=== PATIENT | male | born 1985 | race Caucasian/White ===

== ENCOUNTER 2017-11-03 18:14 | Emergency (ER) | payer SELFPAY, OTHER ==
--- NOTE | 2017-11-03 18:54 | RAD ---
SINGLE FRONTAL VIEW OF THE RIGHT HAND 11/03/17 HISTORY: Right hand pain, swelling, redness around the nailbed. FINDINGS/IMPRESSION: No definite abnormalities seen. POS: [facility]
[2017-11-03] MEDS ORDERED: Lidocaine 1% PF 5 ML VIAL ONE (19:01)
[2017-11-03] MEDS ORDERED: Adacel (T-DAP) 0.5 ML VIAL ONE (19:40)
== END 2017-11-03 20:10 | disposition home or self-care (01) ==
LOC: ERS 18:14
DX: L03.011 Cellulitis of right finger (principal)
CPT/HCPCS: 10060; 87070; 87205; 90471; 90715; J2001

== ENCOUNTER 2017-11-12 12:10 | Emergency (ER) | payer SELFPAY ==
[2017-11-12] MEDS ORDERED: methylPREDNISolone Sod Succ/PF 125 MG/2 ML VIAL ONE (15:01)
[2017-11-12] MEDS ORDERED: diphenhydrAMINE 25 MG CAP ONE (15:01)
[2017-11-12] MEDS ORDERED: Sterile Water 10 ML ONE (15:05)
== END 2017-11-12 15:35 | disposition home or self-care (01) ==
LOC: ERS 12:10
DX: L27.0 Generalized skin eruption due to drugs and medicaments taken internally (principal); T36.1X5A Adverse effect of cephalosporins and other beta-lactam antibiotics, initial encounter; T37.0X5A Adverse effect of sulfonamides, initial encounter
CPT/HCPCS: 96372; A4216; J2930

== ENCOUNTER 2020-07-16 11:25 | Inpatient (IN) | payer SELFPAY ==
[2020-07-16 12:02] LABS: #Eosinphils 0.2 thou/uL (0.0-0.7); #Lymphocytes 2.7 thou/uL (1.20-3.40); #Monocytes 0.6 thou/uL (0.11-0.59); #Neutrophils 3.2 thou/uL (1.40-6.50); %Basophils 0.4 % (0.0-1.0); %Eosinophils 3.4 % (0.0-10.0); %Lymphocytes 39.8 % (21.0-51.0); %Monocytes 8.2 % (0.0-10.0); %Neutrophils 48.2 % (42.0-75.0); Hemoglobin 18.1 g/dL (14.0-18.0); Mean Corpuscular HGB CONC 34.4 g/dL (32.0-36.0); Mean Corpuscular Hemoglobin 31.2 pg (27.0-31.0); Mean Corpuscular Volume 90.7 fL (78.0-98.0); Mean Platelet Volume 6.6 fL (7.4-10.4); Platelet Count 244 thou/uL (130-400); RBC Distribution Width 11.8 % (11.5-14.5); Red Blood Cell (RBC) Count 5.79 mill/uL (4.70-6.10); White Blood Cell (WBC) Count 6.7 thou/uL (4.8-10.8)
[2020-07-16 12:34] LABS: ALT (SGPT) 39 U/L (8-55); AST (SGOT) 36 U/L (5-34); Albumin 4.9 g/dL (3.5-5.0); Alkaline Phosphatase 80 U/L (40-110); Anion Gap 16 mmol/L (10-20); BUN (Urea Nitrogen) 9 mg/dL (8.9-20.6); CK (CPK) 179 U/L (30-200); Calc. Creatinine Clearance 0 mL/min (70-130); Calcium 9.8 mg/dL (7.8-10.44); Carbon Dioxide 25 mmol/L (22-29); Chloride 101 mmol/L (98-107); Estimated GFR-MDRD 68; Globulin 3.5 g/dL (2.4-3.5); Glucose 91 mg/dL (70-105); Lipase 30 U/L (8-78); Potassium 4.4 mmol/L (3.5-5.1); Protein, Total 8.4 g/dL (6.0-8.3); Sodium 138 mmol/L (136-145)
[2020-07-16] MEDS ORDERED: cefTRIAXone\\ROCEPHIN 2 GM VIAL ONE (12:38)
--- NOTE | 2020-07-16 12:47 | CT ---
CT angiogram thorax with contrast CT angiogram abdomen with contrast: HISTORY: 35-year-old male with chest pain and right upper extremity paresthesia and hypesthesia (numbness) TECHNIQUE: IV injection of iodinated contrast. Arterial bolus chasing technique. Scan acquisition from top of aortic arch to iliac crests. 3-D MIP reconstructions. FINDINGS: There is no thrombus in the pulmonic trunk, left and right main pulmonary arteries, or their proximal and mid level branches. The thoracic and abdominal aorta, right subclavian artery, bilateral renal arteries, celiac artery, a nd superior mesenteric artery, are normal in caliber, with no atherosclerotic calcification, dissection, aneurysm, or rupture. Streak artifact from dense contrast bolus in the left subclavian vein and left brachiocephalic vein, partially obscures the brachiocephalic artery, distal portion of left subclavian vein, and proximal left common carotid artery. At the right tracheoesophageal groove at the thoracic inlet, there is an air-filled cavity with sever al thin septations, measuring approximately 2 x 2 x 1 cm. The lungs are clear. There is no pneumothorax or pleural effusion. No fracture of right clavicle, right ribs, or sternum. Thoracic and upper and mid lumbar vertebral body heights are maintained. No high-grade thoracic spond ylosis. Trachea and major bronchi are patent and clear. No mediastinal or hilar lymphadenopathy. Liver is somewhat enlarged and has diffusely low attenuation consistent with fatty liver. Within the limitations of an [id number] scan, no abnormality identified involving pancreas, kidneys, adrenals, or spleen. No free fluid or pneumoperitoneum identified in the upper and mid abdomen. IMPRESSION: 1) normal aorta. 2) normal right subclavian artery. 3) hepatomegaly and hepatic steatosis. 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
[2020-07-16] MEDS ORDERED: Aspirin Chewable 81 MG TAB ONE (13:34)
[2020-07-16] MEDS ORDERED: Iopamidol-370 76% 500 ML 1 ML ONE (15:14)
--- NOTE | 2020-07-16 15:54 | PDOC.HHP ---
Hospitalist HPI - History of Present Illness CP History of Present Illness: 35 yo male with no PMHx who presented to the ED with CP. Intermittent x 3 mo. Seems to be getting more frequent, lasting longer and with new symptoms. Pain feels like chest pressure. Elephant sitting his chest. Occurs randomly. Not related to activity. He will wake with it at night at times. Now having some associated sharp pain in chest. Shooting pains in the RLE and RLE. Some SOB with the pain. Today also had some problems with swallowing. Says his heart rate occasionally feels fast, but no real palpitations. Reports diarrhea for the past week. Voiding frequently. Urine seems dark to him. ED Course: Given aspirin and Rocephin. His EKG appeared to possibly be abnormal with ST depression. Reviewed with Dr. Murray and determined to be non-ischemic. Dr. Murray recommended Echo and stress. Hospitalist ROS - Review of Systems Constitutional: denies: fever, chills Respiratory: reports: shortness of breath. denies: cough, SOB with excertion Cardiovascular: reports: chest pain. denies: palpitations, paroxysmal noc. dyspnea, light headedness Gastrointestinal: reports: diarrhea. denies: nausea, vomiting, abdominal pain, constipation Genitourinary: reports: frequency. 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 Father is unknown. - Social History Smoking Status: Never smoker Alcohol: reports: None Drugs: reports: none Living Situation: With Family - Exam General Appearance: NAD, awake alert Eye: PERRL, anicteric sclera Neck: supple, symmetric, no JVD, no thyromegaly, no lymphadenopathy, no carotid bruit Heart: RRR, no murmur, no gallops, no rubs, normal peripheral pulses Respiratory: CTAB, no wheezes, no rales, no ronchi, normal chest expansion, no tachypnea, normal percussion Gastrointestinal: soft, non-tender, non-distended, normal bowel sounds, no palpable masses, no hepatomegaly, no splenomegaly, no bruit Extremities: no cyanosis, no clubbing, no edema Skin: normal turgor, no lesions, no rashes Neurological: cranial nerve grossly intact, normal sensation to touch, no weakness, no focal deficits, no new deficit Musculoskeletal: normal tone, normal strength, no muscle wasting Psychiatric: normal affect, normal behavior, A&O x 3 Hospitalist Results - Labs Result Diagrams: 07/16/20 11:52 07/16/20 11:53 Lab results: WBC 6.7 thou/uL (4.8-10.8) 07/16/20 11:52 Hgb 18.1 g/dL (14.0-18.0) H 07/16/20 11:52 Hct 52.5 % (42.0-52.0) H 07/16/20 11:52 MCV 90.7 fL (78.0-98.0) 07/16/20 11:52 Plt Count 244 thou/uL (130-400) 07/16/20 11:52 Neutrophils % 48.2 % (42.0-75.0) 07/16/20 11:52 Sodium 138 mmol/L (136-145) 07/16/20 11:53 Potassium 4.4 mmol/L (3.5-5.1) 07/16/20 11:53 Chloride 101 mmol/L (98-107) 07/16/20 11:53 Carbon Dioxide 25 mmol/L (22-29) 07/16/20 11:53 BUN 9 mg/dL (8.9-20.6) 07/16/20 11:53 Creatinine 1.21 mg/dL (0.7-1.3) 07/16/20 11:53 Glucose 91 mg/dL (70-105) 07/16/20 11:53 Calcium 9.8 mg/dL (7.8-10.44) 07/16/20 11:53 Total Bilirubin 1.0 mg/dL (0.2-1.2) 07/16/20 11:53 AST 36 U/L (5-34) H 07/16/20 11:53 ALT 39 U/L (8-55) 07/16/20 11:53 Alkaline Phosphatase 80 U/L (40-110) 07/16/20 11:53 Creatine Kinase 179 U/L (30-200) 07/16/20 11:53 Troponin I 0.011 ng/mL (< 0.028) 07/16/20 11:53 Serum Total Protein 8.4 g/dL (6.0-8.3) H 07/16/20 11:53 Albumin 4.9 g/dL (3.5-5.0) 07/16/20 11:53 Lipase 30 U/L (8-78) 07/16/20 11:53 - EKG Interpretation EKG: Heart rate 75, normal sinus rhythm, possible old inferior infarct, nonspecific T wave changes - Radiology Interpretation CT scan - chest Status: report reviewed by me Additional Comment: IMPRESSION: 1) normal aorta. 2) normal right subclavian artery. 3) hepatomegaly and hepatic steatosis. 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 Hospitalist H&P A/P - Problem (1) Chest pain Code(s): R07.9 - CHEST PAIN, UNSPECIFIED Status: Acute (2) Abnormal EKG Code(s): R94.31 - ABNORMAL ELECTROCARDIOGRAM [ECG] [EKG] Status: Acute (3) Abnormal CT scan, chest Code(s): R93.89 - ABNORMAL FINDINGS ON DX IMAGING OF OTH BODY STRUCTURES Status: Acute (4) Paresthesia Code(s): R20.2 - PARESTHESIA OF SKIN Status: Acute - Plan Plan: Chest pain: Sounds atypical for coronary angina. Negative trops. EKG reviewed with cardiology and not likely ischemic in nature. ECHO obtained. Serial trops. Tele. Stress test in am. Aspirin given. Chest CT without acute pathologic findings. Abnormal EKG: Reviewed with Cardiology. Does not appear to represent acute ischemia. Abnormal CT chest: Reviewed with CV surgery. Looks like lung tissue and probably not a tracheal diverticulum. Does not appear pathologic and certainly not enough to account for his current symptoms. Paresthesias: May need MRI of the C-spine, but will not order that yet. Needs to get the stress test and not have the MRI get in the way of that because it is more important.
[2020-07-16 16:03] LABS: Troponin I Less than 0.010 ng/mL (< 0.028)
[2020-07-16 18:42] VITALS: BMI 23.1
[2020-07-16 18:42] LABS: Troponin I Less than 0.010 ng/mL (< 0.028)
[2020-07-16] MEDS: Famotidine 20 MG TAB PO SCH (19:12)
[2020-07-16] MEDS: Acetaminophen 325 MG TAB PO PRN (19:13)
[2020-07-16 21:46] LABS: SARS-CoV-2 MS2 Positive; SARS-CoV-2 N Gene Negative; SARS-CoV-2 S Gene Negative; SARS-CoV-2 by NAA Not Detected (NotDetected); SARS-CoV-2 orf1ab Negative
[2020-07-17 04:53] LABS: #Eosinphils 0.2 thou/uL (0.0-0.7); #Lymphocytes 2.4 thou/uL (1.20-3.40); #Monocytes 0.6 thou/uL (0.11-0.59); #Neutrophils 3.4 thou/uL (1.40-6.50); %Basophils 0.2 % (0.0-1.0); %Eosinophils 3.6 % (0.0-10.0); %Lymphocytes 36.1 % (21.0-51.0); %Monocytes 9.1 % (0.0-10.0); Hemoglobin 17.4 g/dL (14.0-18.0); Mean Corpuscular HGB CONC 34.1 g/dL (32.0-36.0); Mean Corpuscular Hemoglobin 31.1 pg (27.0-31.0); Mean Platelet Volume 6.9 fL (7.4-10.4); Platelet Count 231 thou/uL (130-400); Red Blood Cell (RBC) Count 5.59 mill/uL (4.70-6.10); White Blood Cell (WBC) Count 6.7 thou/uL (4.8-10.8)
[2020-07-17 05:11] LABS: Anion Gap 13 mmol/L (10-20); BUN (Urea Nitrogen) 9 mg/dL (8.9-20.6); Calc. Creatinine Clearance 99 mL/min (70-130); Calcium 9.4 mg/dL (7.8-10.44); Carbon Dioxide 28 mmol/L (22-29); Cardiac Risk 2.5 (Less than 4.5); Chloride 102 mmol/L (98-107); Cholesterol 114 mg/dl (< 200 Desired); Estimated GFR-MDRD 78; Glucose 100 mg/dL (70-105); HDL Cholesterol 45 mg/dL (>60 Neg Risk); LDL Cholesterol, Calculated 60 mg/dL; Sodium 139 mmol/L (136-145); Triglycerides 45 mg/dL (Less than 150)
[2020-07-17] MEDS: Famotidine 20 MG TAB PO SCH (11:50)
[2020-07-17] MEDS: Enoxaparin Sodium 40 MG/0.4 ML SYRINGE SC SCH (11:50)
--- NOTE | 2020-07-17 12:20 | CON ---
DATE OF CONSULTATION: 07/17/2020 REASON FOR CONSULTATION: Chest pain and abnormal EKG. HISTORY OF PRESENT ILLNESS: Mr. Mancilla is a 35-year-old man, who has been having chest pain for several months, sometimes with middle of his chest, going across his chest, sometimes it feels like "an elephant on my chest," at times with exertion, all times with the rest. He had a severe episode yesterday, came to the emergency room for evaluation as will be outlined below. The patient has a very strong family history of heart disease including patients with coronary artery disease in their early 40s. Otherwise, the patient has no risk factors for heart disease. He does not smoke or use alcohol or tobacco. He does not have diabetes. No history of high cholesterol. In fact, his cholesterol LDL is 60 this morning, triglyceride 45, total cholesterol 114, HDL is 45, low risk factor profile. The patient has no previous cardiac operations or procedures. REVIEW OF SYSTEMS: CONSTITUTIONAL: No significant weight gain or loss. VISION: No changes. HEARING: No changes. PULMONARY: No cough or wheezing. GASTROINTESTINAL: No nausea, vomiting, or diarrhea. SKIN: No rashes. NEUROLOGIC: No unilateral weakness or numbness. PSYCHIATRIC: No unusual depression or anxiety. HEMATOLOGIC: No unusual bruising. GENITOURINARY: No burning with urination. PHYSICAL EXAMINATION: GENERAL: This is a pleasant, thin gentleman, in no distress. VITAL SIGNS: Blood pressure 139/71, pulse 70. LUNGS: Clear. CARDIAC: Normal S1, normal S2. ABDOMEN: Soft and nontender. EXTREMITIES: Warm, dry. No clubbing. No cyanosis. There is no edema. Good peripheral pulses. LABORATORY DATA: EKG sinus rhythm with Q-waves in the inferior leads, high voltage compatible with left ventricular hypertrophy, some biphasic T-waves in V2. Echocardiogram does show what appears to be some septal hypertrophy, I measured the septum at 1.4 cm and also some thickening at the apex. ASSESSMENT: 1. Suspect hypertrophic myopathy. 2. Ongoing chest pain. 3. Low risk factor profile for coronary artery disease. PLAN: 1. Stress testing has been done. 2. We will need cardiac catheterization to make a definitive diagnosis to make sure he does not have coronary artery disease in view of his symptoms. This will be planned for Sunday. We will follow during this hospitalization. Job ID: [id number]
--- NOTE | 2020-07-17 12:55 | NM ---
Radionucleotide stress and rest myocardial perfusion scan with CT attenuation correction and SPECT im aging Left ventricular wall motion evaluation and ejection fraction HISTORY: Chest pain. FINDINGS: Lexiscan protocol. Homogeneous uptake of radiotracer throughout the left ventricular myocar dium. No focal perfusion defect or reversibility. QGS analysis of gated SPECT images shows no focal wall motion abnormalities. Ejection fraction calcul ated at 65%. IMPRESSION : No evidence of ischemia. Normal LVEF.
[2020-07-17] MEDS ORDERED: Nitroglycerin 0.4 MG TAB (25 Tab Bottle) SL PRN (14:46)
[2020-07-17] MEDS ORDERED: Regadenoson 0.4 MG/5 ML SYRINGE ONE (14:52)
[2020-07-17] MEDS ORDERED: Carvedilol 6.25 MG TAB PO SCH (15:00)
[2020-07-17] MEDS ORDERED: Aspirin 81 mg Enteric Coated Tablet PO SCH (15:00)
--- NOTE | 2020-07-17 15:46 | PDOC.HOSPP ---
- Subjective Encounter Date: 07/17/20 Encounter Time: 14:00 Subjective: Patient seen and examined for chest discomfort with abnormal EKG. Had some chest pressure earlier which was mild. No associated nausea or vomiting reported. Had some belching earlier that has resolved. - Objective Vital Signs & Weight: Vital Signs (12 hours) Temp Pulse Resp BP BP Pulse Ox 07/17/20 11:55 98.3 F 78 16 145/85 H 95 07/17/20 07:20 98.1 F 72 16 139/71 98 07/17/20 04:05 97.7 F 65 16 120/74 95 07/17/20 04:00 97.7 F 65 16 120/74 95 Weight Weight 161 lb I&O: 07/16/20 07/17/20 07/18/20 06:59 06:59 06:59 Intake Total 120 Output Total 875 Balance -755 Result Diagrams: 07/17/20 04:22 07/17/20 04:22 EKG Reviewed by me: Yes (Sinus rhythm on telemetry) Hospitalist ROS - Review of Systems Respiratory: denies: cough, dry, shortness of breath, hemoptysis, SOB with excertion, pleuritic pain, sputum, wheezing, other Cardiovascular: denies: chest pain, palpitations, orthopnea, paroxysmal noc. dyspnea, edema, light headedness, other - Medication Medications: Active Medications Generic Name Dose Route Start Last Admin Trade Name Freq PRN Reason Stop Dose Admin Acetaminophen 650 mg 07/16/20 15:44 07/16/20 19:13 Acetaminophen 325 Mg Tab PO 650 mg Q4H PRN Administration Headache/Fever/Mild Pain (1-3) Enoxaparin Sodium 40 mg 07/17/20 09:00 07/17/20 11:50 Enoxaparin Sodium 40 Mg/0.4 Ml Syringe SC 40 mg 0900 VANNESA Administration Famotidine 20 mg 07/16/20 21:00 07/17/20 11:50 Famotidine 20 Mg Tab PO 20 mg BID VANNESA Administration - Exam General Appearance: NAD Neck: supple, no JVD Heart: RRR, no gallops Respiratory: no wheezes, no ronchi Gastrointestinal: soft, non-distended Extremities: no cyanosis Hosp A/P - Plan DVT proph w/SCDs Chest discomfort suspicious for unstable angina Stress test negative for reversible ischemia on 07/17 -Echocardiogram showed some hypertrophy of the septum with normal ejection fraction of 55 to 60% Abnormal EKG GERD Suspected hypertrophic cardiomyopathy Plan: Continue aspirin. Patient started on carvedilol. Add low-dose statin. Cardiac catheterization on Sunday. Add PPIs. Continue other medications as above.
[2020-07-17] MEDS: Acetaminophen 325 MG TAB PO PRN (15:55)
[2020-07-17] MEDS ORDERED: Mag-Al 1200 mg/1200 mg/30 ML UDCUP PO PRN (16:02)
[2020-07-17] MEDS ORDERED: Calcium Carbonate 500 MG ChewTAB PO PRN (16:02)
[2020-07-17] MEDS ORDERED: Atorvastatin Calcium 10 MG TAB PO SCH (21:00)
[2020-07-17] MEDS ORDERED: Atorvastatin Calcium 20 MG TAB PO SCH (21:00)
[2020-07-17] MEDS: Carvedilol 6.25 MG TAB PO SCH (21:02)
[2020-07-18 05:06] LABS: #Eosinphils 0.3 thou/uL (0.0-0.7); #Lymphocytes 2.2 thou/uL (1.20-3.40); #Monocytes 0.5 thou/uL (0.11-0.59); #Neutrophils 2.6 thou/uL (1.40-6.50); %Basophils 0.2 % (0.0-1.0); %Eosinophils 4.7 % (0.0-10.0); %Lymphocytes 39.8 % (21.0-51.0); %Monocytes 9.3 % (0.0-10.0); Hemoglobin 16.7 g/dL (14.0-18.0); Mean Corpuscular HGB CONC 31.6 g/dL (32.0-36.0); Mean Corpuscular Hemoglobin 28.8 pg (27.0-31.0); Mean Corpuscular Volume 91.2 fL (78.0-98.0); Mean Platelet Volume 6.8 fL (7.4-10.4); Platelet Count 232 thou/uL (130-400); RBC Distribution Width 12.1 % (11.5-14.5); Red Blood Cell (RBC) Count 5.78 mill/uL (4.70-6.10); White Blood Cell (WBC) Count 5.6 thou/uL (4.8-10.8)
[2020-07-18 05:24] LABS: Anion Gap 12 mmol/L (10-20); BUN (Urea Nitrogen) 14 mg/dL (8.9-20.6); Calc. Creatinine Clearance 102 mL/min (70-130); Calcium 9.3 mg/dL (7.8-10.44); Carbon Dioxide 30 mmol/L (22-29); Chloride 100 mmol/L (98-107); Estimated GFR-MDRD 75; Glucose 89 mg/dL (70-105); Magnesium 2.2 mg/dL (1.6-2.6); Potassium 4.2 mmol/L (3.5-5.1); Sodium 138 mmol/L (136-145)
[2020-07-18] MEDS: Carvedilol 6.25 MG TAB PO SCH ×2 (09:28→21:18)
[2020-07-18] MEDS: Aspirin 81 mg Enteric Coated Tablet PO SCH (09:31)
[2020-07-18] MEDS: Enoxaparin Sodium 40 MG/0.4 ML SYRINGE SC SCH (09:31)
[2020-07-18] MEDS ORDERED: diphenhydrAMINE 25 MG CAP PO PRN (10:24)
[2020-07-18] MEDS ORDERED: Hydrocortisone 1% Cream 30 GM TUBE TOP PRN (10:25)
--- NOTE | 2020-07-18 11:27 | CON ---
DATE OF CONSULTATION: 07/17/2020 SERVICE: [facility]. REASON FOR CONSULT: Atypical chest pain. HISTORY OF PRESENT ILLNESS: Mr. Tanmay Mancilla is a 35-year-old gentleman without prior medical history, presented with refractory chest pain and shortness of breath. Six months ago, he was quite well, he does not have any problems. He developed an episodic chest pain about 3 months ago. He said at first it was a low-level pressure-like pain that occurred randomly. He cannot recall a trigger. At first, it only happened about once or twice a day with short durations. However, as time progressed, intensity of the chest pain and duration of chest pain increased. He said that the chest pain is a pressure sensation in the midsternum. At times, it feels like the elephant is sitting on the chest and squeezing. At other times, it is felt like stabbing. He will have shortness of breath with diffuse chest pain. The diffuse chest pains can occur without provocation. Sometimes it occurs when he is working, the other times it could occur while he is resting and every once in a while it will occur during sleep at nighttime. It actually wakes him up during the sleep. The duration started with a few minutes now, lasted 30 minutes to 3 hours at a time. 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 He felt very short of breath. He felt very weak and the intensity increased. Then, he developed severe electrical like pain shooting down the right arm and his right leg. This combination became intolerable. It lasted about 3 hours. He went home to rest. After some period of rest at home, it recurred. The recurrence at rest of this syndrome caused him to seek care. Since 3 months ago, he had trouble sleeping. He normally sleeps flat. He does not have orthopnea. He denies edema. However, this past week before admission, he will wake up in the middle night feeling short of breath, he need to sit up. Furthermore, he is feeling very fatigued. This is very unusual for him. PAST MEDICAL HISTORY: None. SOCIAL HISTORY: 1. He is a nonsmoker. 2. He does drink alcohol socially about 3 beers at a time on occasions. 3. He denies illicit drug use. 4. 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 This is the first time that he had been having this type of pain. FAMILY HISTORY: 1. He is estranged from the father, he cannot really say about the father's family history. 2. His mother is alive. However, she has arrhythmias. It sounds like she has atrial fibrillation. He also talked about having valvular heart defect. I believe it sounds like mitral valve defect. However, he could not really describe what it is. 3. His uncle which is his mom's brother had his first myocardial infarction at 47 and then he actually had 2 myocardial infarction rapidly within a month of each other and also has 2 strokes. This is now quite disabled, that person has an AICD, sounds like he had a HOST COORDINATOR-D. 4. He had a brother who at . He has a sister who is well. 5. On his mother side of family, there were multiple incidents of myocardial infarction and strokes. They all occurred at early age. 6. He cannot recall any immediate family member or 2nd degree relative that suffers from sudden cardiac . REVIEW OF SYSTEMS: GENERAL: He is fatigued. HEENT: There is no change in vision, hearing, or swallowing. PULMONARY: Please see HPI. CARDIAC: Please see HPI. GI: There is no nausea, vomiting, or diarrhea. However, he says he has seemed to have frequent heartburn. : He is urinating well. MUSCULOSKELETAL: Please see HPI, but in general he does not have muscle or joint pains. INTEGUMENT: There is no new skin breakdown. NEUROLOGIC: There are no new focal deficits or weaknesses. MEDICATIONS: Medication on records currently; 1. Enoxaparin 40 mg subcutaneous at night. 2. Pepcid 20 mg b.i.d. 3. Acetaminophen 650 mg q.4 hours p.r.n. for pain. PHYSICAL EXAMINATION: TELEMETRY: Reviewed. He is in sinus rhythm. VITAL SIGNS: His latest vitals; heart rate 78, blood pressure 145/85. GENERAL: He is alert and conversational, but anxious. HEENT: Show EOMI. Oropharynx is benign with moist mucosa. NECK: His JVP is about 8 cm. Negative hepatojugular reflux. He is not volume overloaded. PULMONARY: There is good air movement bilaterally. Clear to auscultation bilaterally. CHEST WALL: When I pressed on his sternal and rib junction, he reproduced quite a bit of pain, thus he has also a costochondritis component. CARDIAC: Regular rate and rhythm with normal S1, S2. There is 2/6 holosystolic murmur that radiates to the left axilla. There is also 2/6 systolic murmur that goes along the left sternal border. However, there were no gallops, no rubs. ABDOMEN: Soft, nontender. Positive bowel sounds. EXTREMITIES: Lower extremities without edema. Positive dorsalis pedis pulses bilaterally and warm and well perfused. DIAGNOSTIC STUDIES: EKG was briefly reviewed. It shows sinus rhythm. There are Q-waves at inferior leads II, III, aVF. There is J-point increased at the anterior leads, but they are not significant enough to be an LA. CT scan was done. It did not detect any aortic dissection. Echocardiogram from July 15 was reviewed: 1. LVEF is about 60%. 2. There is septal hypertrophy up to 2 cm. The number in report is incorrect. 3. There is posterior wall mild hypertrophy about 1.4 cm. The report is incorrect. 4. There is also appearance of apical hypertrophy. There is also trabeculation to suggest some degree of noncompaction. 5. Mitral valve regurgitation was not imaged well. 6. There is enhanced ventricular septal defect, but was not imaged well. 7. This echo will need to be partially done to correct the numbers. There is no tissue Doppler of the septum neither, so this also needs to be redone. Nuclear perfusion stress was done. Per report, there is no reversible ischemia. ASSESSMENT: A 35-year-old gentleman who has atypical chest pain. His echocardiographic findings suggest that he has hypertrophic cardiomyopathy. The predominant mutation will be cardiac myosin binding protein C, second one will be myosin heavy chain, and third cardiac troponin I. However, his pattern does not fit any of these mutations. 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 He does give a concerning history of ischemic pain. The heavy chest pressure and shortness of breath that occurs with increasing frequency without provocation suggests unstable angina is present. Even though he has negative stress, it is still worthwhile to complete catheterization with coronary angiogram to ensure there is no significant coronary artery disease. In the meantime, he will need some aspirin, carvedilol, and nitroglycerin. RECOMMENDATIONS: Please see the following for my detailed recommendations. 1. Start carvedilol 6.25 mg p.o. q.12 hours, first dose now. 2. Please provide aspirin 162 mg daily. This may help even with his costochondritis, but it definitely will help with his potential coronary artery disease and ischemia. 3. Please provide nitroglycerin 0.4 mg sublingual p.r.n. as needed for chest pains. If there is no relief after first dose, please call MD. 4. I will ask bullet charging machine operator to do a partial echo to correct his structural measurements, mitral valve regurgitation, and also to better define diastolic function and also better define if there is any existence of VSD. 5. Please perform catheterization/coronary angiogram. It has been a pleasure taking care of Mr. Tanmay Mancilla. If you have any question, please give me a call. This visit took about 80 minutes. This includes personally performing history and physical, counseling and explaining the situation to the patient and his mother, coordinating care with other cardiologists and primary care team. It also includes reading echocardiogram and ECG. Job ID: [id number] MTDD
[2020-07-18] MEDS: Acetaminophen 325 MG TAB PO PRN (13:22)
--- NOTE | 2020-07-18 13:37 | PDOC.HOSPP ---
- Subjective Encounter Date: 07/18/20 Encounter Time: 09:00 Subjective: Patient seen and examined for chest discomfort. No new chest pain. Denies any shortness of breath or palpitations. - Objective Vital Signs & Weight: Vital Signs (12 hours) Temp Pulse Resp BP BP BP Pulse Ox 07/18/20 11:26 98.2 F 68 12 111/68 95 07/18/20 09:28 116/75 07/18/20 07:25 97.7 F 65 16 116/75 99 07/18/20 05:55 95 07/18/20 03:20 97.2 F L 63 14 120/68 97 Weight Weight 172 lb 9.6 oz I&O: 07/17/20 07/18/20 07/19/20 06:59 06:59 06:59 Intake Total 120 1550 480 Output Total 875 1800 Balance -755 -250 480 Result Diagrams: 07/18/20 04:04 07/18/20 04:04 EKG Reviewed by me: Yes (Sinus rhythm on telemetry) Hospitalist ROS - Review of Systems Respiratory: denies: cough, dry, shortness of breath, hemoptysis, SOB with excertion, pleuritic pain, sputum, wheezing, other Gastrointestinal: denies: nausea, vomiting, abdominal pain, diarrhea, constipation, melena, hematochezia, other - Medication Medications: Active Medications Generic Name Dose Route Start Last Admin Trade Name Freq PRN Reason Stop Dose Admin Acetaminophen 650 mg 07/16/20 15:44 07/18/20 13:22 Acetaminophen 325 Mg Tab PO 650 mg Q4H PRN Administration Headache/Fever/Mild Pain (1-3) Aspirin 162 mg 07/18/20 09:00 07/18/20 09:31 Aspirin 81 Mg Enteric Coated Tablet PO 162 mg DAILY VANNESA Administration Carvedilol 6.25 mg 07/17/20 21:00 07/18/20 09:28 Carvedilol 6.25 Mg Tab PO 6.25 mg Q12HR VANNESA Administration Enoxaparin Sodium 40 mg 07/17/20 09:00 07/18/20 09:31 Enoxaparin Sodium 40 Mg/0.4 Ml Syringe SC 40 mg 0900 VANNESA Administration Nitroglycerin 0.4 mg 07/17/20 14:46 07/17/20 16:01 Nitroglycerin 0.4 Mg Tab (25 Tab Bottle) SL 1 tab Q5MIN PRN Administration Chest Pain Pantoprazole Sodium 40 mg 07/17/20 21:00 07/17/20 21:02 Pantoprazole 40 Mg Tab PO 40 mg HS VANNESA Administration - Exam General Appearance: NAD Heart: RRR, no gallops Respiratory: no wheezes, no ronchi Gastrointestinal: soft, non-distended Extremities: no cyanosis, no clubbing Hosp A/P - Plan DVT proph w/SCDs Chest discomfort suspicious for unstable angina Stress test negative for reversible ischemia on 07/17 -Echocardiogram showed some hypertrophy of the septum with normal ejection fraction of 55 to 60% -Repeat partial echo done 07/18 Abnormal EKG GERD Suspected hypertrophic cardiomyopathy Plan: Patient will undergo cardiac catheterization tomorrow morning. We will continue aspirin with carvedilol. Continue other medications as above. Cardiology input appreciated.
--- NOTE | 2020-07-18 19:50 | PRG ---
DATE OF SERVICE: 07/18/2020 SUBJECTIVE: Mr. Tanmay Mancilla had a very good day and night. Carvedilol seemed to relieve his chest pain. He does not have chest pains anymore. He was able to sleep well. He said this was best he felt in about 3 months. He denies any orthopnea. REVIEW OF SYSTEMS: GENERAL: There is no fever, chills, or productive cough. HEENT: There is no change in vision, hearing, or swallowing. PULMONARY: Please see HPI. CARDIAC: There is no chest pain, palpitations, or syncope. GI: There is no nausea, vomiting, or diarrhea. : He is urinating well on his own. MUSCULOSKELETAL: There is no complaint of muscle or joint pain. INTEGUMENT: There is no skin breakdown. NEUROLOGIC: There are no focal deficits or weaknesses. MEDICATIONS: 1. Aspirin 162 mg daily. 2. Atorvastatin 10 mg at bedtime. 3. Carvedilol at 6.25 mg q.12 hours. 4. Enoxaparin 40 mg subcutaneous daily. 5. Nitroglycerin 0.4 mg sublingual as needed. 6. Protonix 40 mg p.o. daily. PHYSICAL EXAMINATION: VITAL SIGNS: Heart rate 68, blood pressure 111/68. GENERAL: He is alert and conversational, sitting comfortably in bed. He is a lot less anxious today. HEENT: Show EOMI. Oropharynx is benign with moist mucosa. NECK: He has surprisingly high JVP, about 10 cm, with positive hepatojugular reflux. PULMONARY: Good air movement bilaterally. Clear to auscultation bilaterally. CARDIAC: Regular rate and rhythm with normal S1, S2. There is 2/6 holosystolic murmur at the apex with radiation to the left axilla. ABDOMEN: Soft, nontender. Positive bowel sounds. EXTREMITIES: Lower extremities are warm and well perfused. There is no edema. There are strong dorsalis pedis pulses bilaterally. LABORATORY DATA: His laboratory values are white cell count 5.6, hemoglobin 16.7, platelets 232. His chemistry shows a sodium of 138, potassium 4.2, BUN 14, creatinine is 1.12. His updated echocardiogram from today was reviewed: 1. LVEF about 60%. 2. He has septal hypertrophy, at least 1.6 cm, and apical hypertrophy. 3. He has mildly dilated right ventricle. 4. These are consistent with mild hypertrophic cardiomyopathy. ASSESSMENT: 35-year-old gentleman has unclear source of chest pain; however, this has been relieved. Due to progessively worsening and sounding very much like ischemia, a coronary angiogram still needs to be done. However, his echocardiogram suggests hypertrophic cardiomyopathy is present. His surprisingly high JVP with positive hepatojugular reflux suggests a cardiomyopathic process is ongoing. There are no significant arrhythmias seen on the telemetry, it is all sinus rhythm. The coronary angiogram tomorrow will be the deciding factor. RECOMMENDATIONS Please see the following for my recommendations: 1. Proceed to coronary angiogram as planned. 2. Please continue carvedilol at 6.25 mg p.o. q.12 hours. This will probably help the patient. 3. Please do n.p.o. at midnight. 4. Please provide half-normal saline at 75 mL/minute starting at 6 o'clock in the morning. 5. Long-term, the patient will also need aspirin 162 mg daily. 6. I also counseled the patient about getting his health insurance. He works for [employer]. They do provide health insurance, however, he declined health insurance. Thus, I urged him to enroll in health insurance. It has been a pleasure taking care of Mr. Tanmay Mancilla. I will be rotating off service today. Thank you for allowing me to consult. Please feel free to call me if you have any questions. Visitation time is 30 minutes. Job ID: [id number] MTDD
[2020-07-19 04:47] LABS: #Eosinphils 0.2 thou/uL (0.0-0.7); #Lymphocytes 2.1 thou/uL (1.20-3.40); #Monocytes 0.6 thou/uL (0.11-0.59); #Neutrophils 3.1 thou/uL (1.40-6.50); %Basophils 0.6 % (0.0-1.0); %Eosinophils 3.8 % (0.0-10.0); %Lymphocytes 34.5 % (21.0-51.0); %Monocytes 9.3 % (0.0-10.0); %Neutrophils 51.8 % (42.0-75.0); Hemoglobin 16.5 g/dL (14.0-18.0); Mean Corpuscular HGB CONC 33.7 g/dL (32.0-36.0); Mean Corpuscular Hemoglobin 30.4 pg (27.0-31.0); Mean Corpuscular Volume 90.3 fL (78.0-98.0); Mean Platelet Volume 6.9 fL (7.4-10.4); Platelet Count 232 thou/uL (130-400); Red Blood Cell (RBC) Count 5.41 mill/uL (4.70-6.10); White Blood Cell (WBC) Count 6.1 thou/uL (4.8-10.8)
[2020-07-19 05:09] LABS: Anion Gap 10 mmol/L (10-20); BUN (Urea Nitrogen) 12 mg/dL (8.9-20.6); Calc. Creatinine Clearance 107 mL/min (70-130); Calcium 9.1 mg/dL (7.8-10.44); Carbon Dioxide 31 mmol/L (22-29); Chloride 100 mmol/L (98-107); Estimated GFR-MDRD 79; Glucose 89 mg/dL (70-105); Magnesium 2.3 mg/dL (1.6-2.6); Potassium 3.9 mmol/L (3.5-5.1); Sodium 137 mmol/L (136-145)
[2020-07-19] MEDS: Carvedilol 6.25 MG TAB PO SCH (05:23)
[2020-07-19] MEDS: Aspirin 81 mg Enteric Coated Tablet PO SCH (05:23)
[2020-07-19] MEDS ORDERED: Iopamidol 370 76% 100 ML VIAL ONE (09:45)
--- NOTE | 2020-07-19 10:26 | PDOC.HOSPP ---
- Subjective Encounter Date: 07/19/20 Encounter Time: 09:00 Subjective: Patient seen and examined for chest pain. Denies any new chest discomfort. No palpitations or syncope reported - Objective Vital Signs & Weight: Vital Signs (12 hours) Temp Pulse Resp BP BP Pulse Ox 07/19/20 07:23 97.6 F 69 14 108/74 98 07/19/20 05:50 97 07/19/20 03:52 98.1 F 76 13 109/67 98 Weight Weight 172 lb 5 oz I&O: 07/18/20 07/19/20 07/20/20 06:59 06:59 06:59 Intake Total 1550 2300 Output Total 1800 6 Balance -250 2294 Result Diagrams: 07/19/20 04:07 07/19/20 04:07 EKG Reviewed by me: Yes (Sinus rhythm on telemetry) Hospitalist ROS - Review of Systems Cardiovascular: denies: chest pain, palpitations, orthopnea, paroxysmal noc. dyspnea, edema, light headedness, other Gastrointestinal: denies: nausea, vomiting, abdominal pain, diarrhea, constipation, melena, hematochezia, other - Medication Medications: Active Medications Generic Name Dose Route Start Last Admin Trade Name Freq PRN Reason Stop Dose Admin Acetaminophen 650 mg 07/16/20 15:44 07/18/20 13:22 Acetaminophen 325 Mg Tab PO 650 mg Q4H PRN Administration Headache/Fever/Mild Pain (1-3) Aspirin 162 mg 07/18/20 09:00 07/19/20 05:23 Aspirin 81 Mg Enteric Coated Tablet PO 162 mg DAILY VANNESA Administration Carvedilol 6.25 mg 07/17/20 21:00 07/19/20 05:23 Carvedilol 6.25 Mg Tab PO 6.25 mg Q12HR VANNESA Administration Enoxaparin Sodium 40 mg 07/17/20 09:00 07/18/20 09:31 Enoxaparin Sodium 40 Mg/0.4 Ml Syringe SC 40 mg 0900 VANNESA Administration Nitroglycerin 0.4 mg 07/17/20 14:46 07/17/20 16:01 Nitroglycerin 0.4 Mg Tab (25 Tab Bottle) SL 1 tab Q5MIN PRN Administration Chest Pain Pantoprazole Sodium 40 mg 07/17/20 21:00 07/18/20 21:18 Pantoprazole 40 Mg Tab PO 40 mg HS VANNESA Administration - Exam General Appearance: NAD Heart: RRR, no gallops Respiratory: no wheezes, no ronchi Gastrointestinal: non-tender, normal bowel sounds Extremities: no cyanosis, no edema Skin: normal turgor Hosp A/P - Plan DVT proph w/lovenox, DVT proph w/SCDs Chest discomfort suspicious for unstable angina/paced Stress test negative for reversible ischemia on 07/17 -Echocardiogram showed some hypertrophy of the septum with normal ejection fraction of 55 to 60% Abnormal EKG GERD Plan: Plan for cardiac catheterization today. Continue aspirin with carvedilol. Con tinue PPI. Repeat echo showed mild septal hypertrophy and mild apical hypertrophy. There was mild enlargement of the right ventricle. The findings were consistent with mild nonobstructive hypertrophic cardiomyopathy. Discharge disposition based on the cardiac catheterization. Continue telemetry monitoring.
[2020-07-19] MEDS ORDERED: Lidocaine 1% (PF) 30 ML VIAL ONE (11:03)
[2020-07-19] MEDS ORDERED: Midazolam HCl 2 mg/2 ml Vial ONE (11:42)
[2020-07-19] MEDS ORDERED: Fentanyl 100 MCG/2 ML VIAL ONE (11:42)
[2020-07-19] MEDS ORDERED: Sodium Chloride 0.9% 200 ML IV PRN (12:47)
[2020-07-19] MEDS ORDERED: Nitroglycerin 0.4 MG TAB (25 Tab Bottle) SL PRN (12:47)
[2020-07-19] MEDS ORDERED: Acetaminophen/Codeine 30-300mg Tablet PO PRN ×2 (12:47)
[2020-07-19 15:56] VITALS: BP 103/62; TEMP 98
[2020-07-19] MEDS: Enoxaparin Sodium 40 MG/0.4 ML SYRINGE SC SCH (16:21)
--- NOTE | 2020-07-19 16:40 | PRG ---
DATE OF SERVICE: 07/19/2020 Mr. Mancilla underwent cardiac catheterization today. He has normal coronary arteries. Normal left ventricular function. Normal right heart pressures. On the echocardiogram, the patient does have some mild hypertrophic cardiomyopathy, but is nonobstructive. In talking to him that is unlikely to be the source of his symptoms. He has a lot of esophageal reflux symptoms. He said his chest pain has improved since being on the Protonix here over the weekend. In summary, I think the patient does have hypertrophic cardiomyopathy, but it is nonobstructive. I think this is unlikely to be the source of his symptoms. Suspect symptoms likely to be esophageal reflux. Dr. Koroma recommended carvedilol 6.25 mg twice a day. We will continue that for now, although ultimately may need to stop that if the blood pressure is too low. The patient will be asked to see us in the office in for followup. Job ID: [id number]
--- NOTE | 2020-07-19 18:10 | PDOC.DS.DS ---
Provider - Provider Date of Admission: 07/16/20 14:04 Date of Discharge: 07/19/20 Admitting Provider: Harry Santillan MD Consultations: Cardiology Primary Care Physician: NO PCP PROVIDER Course - Hospital Course Hospital Course: Patient is 35-year-old male with no previous medical history presented to the emergency room on 07/16 with chest pressure. He described his symptoms like elephant sitting on the chest. Please refer to the history and physical for further details. The patient was admitted to the telemetry unit with a diagnosis of chest discomfort. His EKG showed nonspecific ST-T wave changes. He was evaluated by cardiology and underwent an echocardiogram that showed septal hypertrophy. Stress test was negative for reversible ischemia. He was also evaluated by advanced heart failure specialist Dr. Koroma per cardiology recommendation. A cardiac catheterization was performed today that showed normal coronary arteries. He has been cleared by cardiology for discharge. Cardiology recommended low-dose aspirin along with beta-blockers. He was advised to follow-up with cardiology in 2 to 3 weeks. Final diagnosis: Chest discomfortatypical suspected due to GERD Hypertrophic nonobstructive cardiomyopathy GERD Abnormal EKG CKD stage II Resuscitation Status: 07/16/20 15:44 Resuscitation Status Routine Resuscitation Status: FULL: Full Resuscitation - Labs Lab Results: 07/19/20 04:07 07/19/20 04:07 Abnormal Lab Results - Last 48 hrs 07/18/20 04:04: Carbon Dioxide 30 H 07/18/20 04:04: Hct 52.7 H, MCHC 31.6 L, MPV 6.8 L 07/19/20 04:07: Carbon Dioxide 31 H 07/19/20 04:07: MPV 6.9 L, Monocytes # 0.6 H - Physical Exam Vitals: Vital Signs (12 hours) Temp Pulse Resp BP BP Pulse Ox 07/19/20 15:53 98.0 F 70 16 103/62 93 L 07/19/20 11:55 97.9 F 71 16 110/67 97 07/19/20 07:23 97.6 F 69 14 108/74 98 Weight Weight 172 lb 5 oz Physical Exam: The patient was seen and examined on the day of discharge. Plan - Discharge Medications Prescriptions: Carvedilol [Coreg] 6.25 mg PO Q12HR #60 tab Pantoprazole [Protonix] 40 mg PO DAILY #30 tab Home Medications: Medication Instructions Recorded Confirmed Type Aspirin [Ecotrin Low Strength] 81 mg PO DAILY tab 07/19/20 Rx Carvedilol [Coreg] 6.25 mg PO Q12HR #60 tab 07/19/20 Rx Pantoprazole [Protonix] 40 mg PO DAILY #30 tab 07/19/20 Rx Allergies: No Known Allergies Allergy (Verified 07/16/20 22:26) - Follow up Plan Referrals: [facility] [MD Not on Staff] - 7 Days (CALL AND SCHEDULE APPT TO SEE PCP IN 7 DAYS) Trev Koroma MD [Active] - 2-3 Weeks (CALL AND SCHEDULE APPT TO SEE DR KOROMA IN 2-3 WEEKS) Leidy Murray MD [Active] - 2-3 Weeks (CALL AND SCHEDULE APPT TO SEE DR MURRAY IN 2-3 WEEKS) Disposition: HOME Quality - Care Measures CORE MEASURES:: N/A
[2020-07-19] MEDS ORDERED: Atorvastatin Calcium 10 MG TAB PO SCH (21:00)
[2020-07-20] MEDS ORDERED: Aspirin 81 mg Enteric Coated Tablet PO SCH (09:00)
== END 2020-07-19 19:30 | disposition home or self-care (01) | DRG 287 ==
LOC: ERS 11:25 → OBSVTOIN 14:04 → 2NO 14:04
PROVIDERS: ADMIT Internal Medicine; ATTEND Internal Medicine
PROC: B2111ZZ Fluoroscopy of Multiple Coronary Arteries using Low Osmolar Contrast (ICD-10-PCS; principal; 2020-07-19)
PROC: B2151ZZ Fluoroscopy of Left Heart using Low Osmolar Contrast (ICD-10-PCS; 2020-07-19)
PROC: 4A023N8 Measurement of Cardiac Sampling and Pressure, Bilateral, Percutaneous Approach (ICD-10-PCS; 2020-07-19)
DX: I42.2 Other hypertrophic cardiomyopathy (principal); K21.9 Gastro-esophageal reflux disease without esophagitis; R94.31 Abnormal electrocardiogram [ECG] [EKG]; R20.2 Paresthesia of skin; N18.2 Chronic kidney disease, stage 2 (mild); Z20.828 Contact with and (suspected) exposure to other viral communicable diseases
CPT/HCPCS: 36415; 71275; 74174; 76942; 78452; 80048; 80053; 80061; 82550; 83690; 83735; 83880; 84443; 84484; 85025; 85379; 87635; 93005; 93017; 93306; 93460; 93561; 94760; 96372; 99153; A9500; G0378; J0696; J1644; J1650; J2001; J2250; J2785; J3010; Q9967; U0003